=== PATIENT | male | born 1990 | race Caucasian/White ===

== ENCOUNTER → 2018-02-05 | Outpatient (REF) | payer OTHER ==
[2018-02-05 15:23] LABS: SEMEN APPEARANCE OPAQUE (OPAQUE); SEMEN VISCOSITY VISCOUS (LIQUID); SEMEN VOLUME 2.1 ml (4.0-5.0); SEMEN pH 8.5 (7.0-8.0); SPERM ABNORMAL FORMS OTHER (SPECIFIY); WBC CONCENTRATION >1 M/ml (<=1 M/ml)
[2018-02-05 15:24] LABS: % NORMAL FORMS 6 % (>=4); IMMOTILITY 54 %; NON PROGRESSIVE MOTILITY (c) 16 %; PROGRESSIVE MOTILITY (a) 30 % (>=32); SPERM# 20.4 M/Ejac (>=39); TOTAL FUNCTIONAL 0.9 M/Ejac.; TOTAL MOTILITY 46 % (>=40); TOTAL PROGRESSIVE SPERM 6.2 M/Ejac.
[2018-02-06 07:24] LABS: SPERM CONCENTRATION 9.7 M/ml (>=15.0)
== END ==
LOC: M LAB REF 16:04
DX: N46.9 Male infertility, unspecified (principal)

== ENCOUNTER 2018-02-20 13:28 | Emergency (ER) | payer OTHER ==
[2018-02-20] MEDS: AZITHROMYCIN 250 MG TAB PO (15:42)
[2018-02-20] MEDS: cefTRIAXone SOD 1 GM VIAL (J0696) IM (15:42)
[2018-02-20] MEDS: NORCO, ANEXSIA 5/325MG TABLET (HYDROcodone/ACETAMINOPHEN) PO (15:48)
[2018-02-20 16:01] LABS: KETONE, URINE AUTO RFX NEGATIVE (NEGATIVE); LEUKOCYTE ESTERASE UR AUTO RFX NEGATIVE (NEGATIVE); MUCUS, URINE RFX SMALL (NEGATIVE); NITRITE, URINE AUTO RFX NEGATIVE (NEGATIVE); RBC, URINE AUTO RFX 0 /HPF (0-3); SPECIFIC GRAVITY UR AUTO RFX 1.018 (1.002-1.035); SQUAM EPITHELIAL CELL UR AURFX 0 /HPF (0-6); WBC, URINE AUTO RFX 1 /HPF (0-3)
[2018-02-20 18:53] LABS: CHLAMYDIA DNA AMPLIFICATION NEGATIVE (NEGATIVE); GC DNA AMPLIFICATION NEGATIVE (NEGATIVE)
== END 2018-02-20 16:46 | disposition home or self-care (01) ==
LOC: M ED 13:28
DX: N45.2 Orchitis (principal)
CPT/HCPCS: J0696

== ENCOUNTER 2018-04-23 10:38 | Emergency (ER) | payer OTHER ==
[2018-04-23] MEDS: METHOCARBAMOL 500 MG TAB PO (11:14)
[2018-04-23] MEDS: NORCO, ANEXSIA 5/325MG TABLET (HYDROcodone/ACETAMINOPHEN) PO (11:15)
== END 2018-04-23 11:51 | disposition home or self-care (01) ==
LOC: M ED 10:38
DX: S39.012A Strain of muscle, fascia and tendon of lower back, initial encounter (principal); X58.XXXA Exposure to other specified factors, initial encounter; Y92.89 Other specified places as the place of occurrence of the external cause; Y93.72 Activity, wrestling
CPT/HCPCS: 72110

== ENCOUNTER 2018-10-18 20:03 | Emergency (ER) | payer OTHER ==
[~2018-10-18] VITALS: Ht 170.2 cm; Wt 79.5 kg
[~2018-10-18 20:03] MED LIST: HYDR-3715 PO; IBUP80TA PO; ROBA500T PO
[2018-10-18] MEDS ORDERED: GI COCKTAIL 50ML BTL(HYOSCYAMINE/MAALOX/LIDOCAINE VISCOUS)(1:3:1) PO ONE (22:00)
[2018-10-18] MEDS ORDERED: NS 1,000 ML IV ONE (22:00)
[2018-10-18] MEDS ORDERED: PANTOPRAZOLE 40MG INJ (PROTONIX) (C9113) IV ONE (22:00)
[2018-10-18 22:40] LABS: BASO # 0.1 10^3/uL (0.0-0.2); BASO % 0.7 % (0.0-1.0); EOS # 0.2 10^3/uL (0.0-0.50); EOS % 2.4 % (0.0-3.0); HEMATOCRIT 42.2 % (42.0-52.0); HEMOGLOBIN 14.9 g/dl (13.5-17.5); LYMPH % 41.5 % (24.0-44.0); MEAN CORPUSCULAR HEMOGLOBIN 30.3 pg (27.0-33.0); MEAN CORPUSCULAR HGB CONC 35.3 g/dl (32.0-36.5); MEAN CORPUSCULAR VOLUME 85.8 fl (80.0-96.0); MONO # 0.6 10^3/uL (0.0-0.8); MONO % 8.9 % (0.0-5.0); NEUTROPHILS # 3.3 10^3/uL (1.8-7.7); NEUTROPHILS % 46.2 % (36.0-66.0); PLATELET COUNT, AUTOMATED 300 10^3/uL (150-450); RED BLOOD COUNT 4.92 10^6/uL (4.30-6.10); WHITE BLOOD COUNT 7.2 10^3/uL (4.0-10.0)
[2018-10-18 23:00] LABS: ALBUMIN 4.2 GM/DL (3.2-5.2); ALT/SGPT 35 U/L (12-78); BILIRUBIN,DIRECT 0.2 MG/DL (0.0-0.2); BILIRUBIN,TOTAL 1.2 MG/DL (0.2-1.0); BLOOD UREA NITROGEN 20 MG/DL (7-18); CALCIUM LEVEL 8.9 MG/DL (8.5-10.1); CARBON DIOXIDE LEVEL 26 MEQ/L (21-32); CHLORIDE LEVEL 108 MEQ/L (98-107); CREATININE FOR GFR 0.81 MG/DL (0.70-1.30); GLOMERULAR FILTRATION RATE > 60.0 (>60); GLUCOSE, FASTING 83 MG/DL (70-100); LIPASE 113 U/L (73-393); POTASSIUM SERUM 3.9 MEQ/L (3.5-5.1); SODIUM LEVEL 140 MEQ/L (136-145); TOTAL PROTEIN 7.5 GM/DL (6.4-8.2)
[2018-10-18] MEDS ORDERED: ISOVUE-370 76% 100ML VIAL (Q9967) As Ordered ONE (23:14)
[2018-10-19] MEDS ORDERED: KETOROLAC 30 MG/ML VIAL (J1885) IV ONE (00:15)
--- NOTE | 2018-10-19 01:09 | REPVR ---
EXAM: CT Abdomen and Pelvis With Contrast EXAM DATE/TIME: 10/18/2018 9:51 PM CLINICAL HISTORY: 28 years old, male; Abdominal pain; Localized; Left upper quadrant (luq); Additional info: Luq pain TECHNIQUE: Imaging protocol: Axial computed tomography images of the abdomen and pelvis with intravenous contrast. Coronal and sagittal reformatted images were created and reviewed. Radiation optimization: All CT scans at this facility use at least one of these dose optimization techniques: automated exposure control; mA and/or kV adjustment per patient size (includes targeted exams where dose is matched to clinical indication); or iterative reconstruction. Contrast material: ISO; Contrast volume: 100 ml; Contrast route: AC; COMPARISON: CR Spine. Lumbosacral, complete 04/23/2018 11:05 AM FINDINGS: Lungs: Bibasilar atelectasis. ABDOMEN: Liver: Liver is enlarged with diffuse fatty patient. Gallbladder and bile ducts: Normal. No calcified stones. No ductal dilation. Pancreas: Normal. No ductal dilation. Spleen: Normal. No splenomegaly. Adrenals: Normal. No mass. Kidneys and ureters: Normal. No hydronephrosis. Stomach and bowel: Normal. No obstruction. No mucosal thickening. Appendix: Normal appendix. PELVIS: Bladder: Unremarkable as visualized. Reproductive: Unremarkable as visualized. ABDOMEN and PELVIS: Intraperitoneal space: Normal. No free air. No significant fluid collection. Bones/joints: No acute fracture. No dislocation. Soft tissues: Unremarkable. Vasculature: Normal. No abdominal aortic aneurysm. Lymph nodes: Normal. No enlarged lymph nodes. IMPRESSION: Fatty liver. No acute finding. Electronically signed by: Keily Leroy On 10/19/2018 01:09:12 AM
[2018-10-19] MEDS ORDERED: SUCR1TA PO (01:29)
[2018-10-19] MEDS ORDERED: PANT-23 PO (01:29)
[2018-10-19 01:30] VITALS: BP 155/90
--- NOTE | 2018-10-19 08:16 | REP ---
Left rib series: Six views including PA chest. History: Left rib pain. Findings: PA chest radiograph is normal. There is no evidence of pneumothorax or hydrothorax. No infiltrate is seen. Mediastinum is not widened. Heart size is normal. Multiple views of the left rib cage demonstrate no evidence of rib fracture or bony destructive lesion. Impression: Negative left rib radiographs. Electronically Signed by Jeses Moulton MD 10/19/2018 08:08 A
== END 2018-10-19 01:41 | disposition home or self-care (01) ==
LOC: M ED 20:03
DX: K21.9 Gastro-esophageal reflux disease without esophagitis (principal); K76.0 Fatty (change of) liver, not elsewhere classified
CPT/HCPCS: 71101; 74177; 80048; 80076; 81001; 83690; 85025; 96361; 96374; 96375; 99284; C9113; J1885; Q9967